=== PATIENT | male | born 1960 | race Caucasian/White ===

== ENCOUNTER → 2019-12-18 13:00 | Outpatient (BNVA) | payer BC, SELFPAY | PROVIDERS: Family Provider Nurse Practitioner Family; PCP Nurse Practitioner Family; Visit Provider Nurse Practitioner Family | DX: J18.9 Pneumonia, unspecified organism (principal) | CPT/HCPCS: 71046 ==

== ENCOUNTER 2022-09-25 10:11 | Emergency (ER) | payer OTHER, BC, MEDICAID, SELFPAY ==
[2022-09-25 10:15] VITALS: BP 172/91; PULSE 122; RESP 22; TEMP 37.3; O2SAT 92; BMI 31.5
--- NOTE | 2022-09-25 10:35 | XRR_ITS ---
PROCEDURE INFORMATION: Exam: XR Chest Exam date and time: 09/25/2022 11:48 AM Age: 62 years old Clinical indication: Cough and dyspnea; Additional info: Dyspnea/cough TECHNIQUE: Imaging protocol: Radiologic exam of the chest. Views: 1 view. COMPARISON: CR XR chest 2V* [id number] 12/18/2019 1:10 PM FINDINGS: Lungs: No focal airspace disease. Pleural spaces: Unremarkable. No pleural effusion. No pneumothorax. Heart/Mediastinum: Cardiomediastinal silhouette is within normal limits. Bones/joints: Unremarkable. XR/XR chest 1V portable [id number] IMPRESSION: No acute cardiopulmonary abnormality.
--- NOTE | 2022-09-25 10:46 | ECG_ITS ---
[facility] Test Date: 2022-09-25 Pat Name: Rocco Alcantar Department: Room: Gender: Male Non Clinical Advisor: : [id number] Requested By: Nick Monk Order Number: [id number] Reading MD: Reese Romero M.D. Measurements Intervals Lavinia Rate: 106 P: 233 UT: 123 QRS: 240 QRSD: 84 T: 239 QT: 307 QTc: 408 Interpretive Statements ECTOPIC ATRIAL TACHYCARDIA WITH OCCASIONAL SUPRAVENTRICULAR PREMATURE COMPLEXES POSSIBLE RIGHT VENTRICULAR HYPERTROPHY [SOME/ALL OF: PROMINENT R IN V1, LATE TRANSITION, RAD, TRACY, SSS] INFERIOR MYOCARDIAL INFARCTION , OF INDETERMINATE AGE [40+ ms Q WAVE AND/OR ST/T ABNORMALITY IN II/aVF] No previous ECG available for comparison Possible lead reversal in the limb leads Defective EKG, need to repeat Electronically Signed On 09-25-2022 22:16:59 SPECIAL EDUCATION SUPERINTENDENT by Reese Romero M.D. [id number]
--- NOTE | 2022-09-25 10:52 | W.ED.SOB ---
HPI - SOB/Dyspnea General: Chief Complaint: Shortness of Breath/Dyspnea Stated Complaint: SOB and fever Time Seen by Provider: 09/25/22 10:25 Source: patient Mode of arrival: ambulatory History of Present Illness: HPI Narrative: 62-year-old male presents emergency room complaining of shortness of breath. Patient has known history of COPD is chronically on 2 L by nasal cannula he recently increased his oxygen by 1 L per minute said a mildly productive cough he has been using his rescue inhaler more often with moderate relief of symptoms. He denies vomiting no diarrhea. Moderately productive cough. He does have a little bit of a low-grade fever. MD elicited complaint: shortness of breath and cough Pertinent past history: COPD Timing: constant and progressively worsening Severity: moderate Exacerbating factors: exertion, coughing and stress Relieving factors: oxygen Known history of: COPD Associated symptoms: Deny abdominal pain, chest congestion, chest pain, cough, diaphoresis, dizziness, extremity pain, fever(s), hemoptysis, lightheadedness, myalgias, nausea, orthopnea, palpitations, paresthesias, polydipsia, polyuria, rash, sense of impending doom, syncope or vomiting Review of Systems Const: Denies: fever(s), chills or diaphoresis ENMT: Denies: throat pain, ear or mastoid pain, nasal discharge or nasal congestion Card: Denies: chest pain, palpitations, lightheadedness, syncope or orthopnea Resp: Reports: dyspnea, productive cough and wheezing; Denies: non-productive cough, hemoptysis or chest congestion GI: Denies: abdominal pain, nausea or vomiting : Denies: flank pain, dysuria, urinary frequency or urinary urgency Musc: Denies: extremity pain Skin/Breast: Denies: rash or pruritus Neuro: Denies: dizziness Endo: Denies: polyuria or polydipsia PFSH ED PFSH: Medical History Acute bacterial sinusitis Anxiety Patient has history of anxiety and panic attacks. He was given Alprazolam dosing to be taken at bedtime and to repeat in 3-4 hours if needed. He reports he is doing well. Arthritis of right elbow COPD, moderate Environmental and seasonal allergies Lower respiratory infection Social History (Reviewed 09/30/22 @ 14:10 by TANYA Owusu Smoking and tobacco status: never smoked Alcohol intake: never Physical Exam Const: COMMON NORMALS: no acute distress GENERAL APPEARANCE: cooperative and comfortable ORIENTATION/CONSCIOUSNESS: Yes awake, Yes oriented to person, Yes oriented to place and Yes oriented to time HENMT: COMMON NORMALS: normocephalic, atraumatic and hearing grossly normal bilaterally HEAD & SCALP: normocephalic and atraumatic Resp: COMMON NORMALS: normal respiratory effort, No retractions and No use of accessory muscles AUSCULTATION: rhonchi and wheezes Cardio: COMMON NORMALS: regular rate, regular rhythm and No murmurs present (Cardio) RATE: regular rate RHYTHM: regular rhythm GI: COMMON NORMALS: Soft to palpation and No hepatosplenomegaly present AUSCULTATION: Yes normoactive bowel sounds PALPATION: Yes Soft to palpation, No Tenderness to palpation present (GI), No Guarding due to palpation present (GI) and Yes No hepatosplenomegaly present Extremity: COMMON NORMALS: normal to inspection, capillary refill normal, no clubbing, cyanosis or edema, no calf tenderness and no pedal edema Neuro: SENSORIUM/ORIENTATION: Yes oriented to person, Yes oriented to place and Yes oriented to time Skin: COMMON NORMALS: no rashes or lesions noted GENERAL SKIN EXAM: no rashes or lesions noted Course Vital Signs: Vital signs: Vital Signs Temperature 99.2 F 09/25/22 10:15 Pulse Rate 78 09/25/22 13:53 Respiratory Rate 16 09/25/22 13:53 Blood Pressure 141/72 09/25/22 13:53 Pulse Oximetry 90 09/25/22 13:53 Oxygen Delivery Me thod 09/25/22 11:23 Oxygen Flow Rate 3 09/25/22 11:23 MDM - SOB/Dyspnea Medical Decision Making Labs and imaging reviewed discharge home with acute exacerbation COPD steroids and aggressive use of beta agonist to improve pulmonary toilet follow-up with primary care if not improving Medical Records I reviewed the patient's medical records. Lab Data I reviewed the patient's lab results. 09/25/22 11:00 09/25/22 11:00 Labs/Radiology: Radiology Impressions Chest X-Ray 09/25/22 10:35 IMPRESSION: No acute cardiopulmonary abnormality. Laboratory Results WBC 5.8 10^3/uL (4.0-10.0) 09/25/22 11:00 RBC 4.53 10^6/uL (4.1-5.3) 09/25/22 11:00 Hgb 14.4 g/dL (11.7-16.6) 09/25/22 11:00 Hct 45.1 % (42.0-52.0) 09/25/22 11:00 MCV 99.6 fl (80-94) H 09/25/22 11:00 MCH 31.8 pg (28.0-34.0) 09/25/22 11:00 MCHC 31.9 g/dL (30.0-36.0) 09/25/22 11:00 RDW 12.9 % (12.1-15.1) 09/25/22 11:00 Plt Count 118 10^3/cmm (130-400) L 09/25/22 11:00 MPV 8.9 fL (7.4-10.4) 09/25/22 11:00 Neut % (Auto) 69.3 % 09/25/22 11:00 Lymph % (Auto) 13.1 % 09/25/22 11:00 Park % (Auto) 15.5 % 09/25/22 11:00 Eos % (Auto) 0.7 % 09/25/22 11:00 Baso % (Auto) 0.2 % 09/25/22 11:00 Neut # (Auto) 4.02 10^3/uL (1.8-7.7) 09/25/22 11:00 Lymph # (Auto) 0.8 10^3/uL (0.8-4.8) 09/25/22 11:00 Park # (Auto) 0.9 10^3/uL (0.2-0.9) 09/25/22 11:00 Eos # (Auto) 0.0 10^3/uL (0.0-0.8) 09/25/22 11:00 Baso # (Auto) 0.0 10^3/uL (0.0-0.1) 09/25/22 11:00 Nucleated RBC % (auto) 0 % 09/25/22 11:00 Nucleated RBCs # 0.0 /100WBC 09/25/22 11:00 Specimen Type Arterial 09/25/22 11:35 Sample Site Radial, right 09/25/22 11:35 ABG pH 7.46 (7.35-7.45) H 09/25/22 11:35 ABG pCO2 38.7 mmHg (35-45) 09/25/22 11:35 ABG pO2 71.4 mmHg (80.0-100.0) L 09/25/22 11:35 ABG HCO3 27.5 mmol/L (22-26) H 09/25/22 11:35 ABG O2 Saturation 96.1 09/25/22 11:35 ABG Base Excess 3.5 mmol/L (-2.0-2.0) H 09/25/22 11:35 Geo Test Pos 09/25/22 11:35 A-a O2 Gradient 14.5 mmHg (5-10) H 09/25/22 11:35 Hematocrit 43.4 % (42-52) 09/25/22 11:35 Hgb O2 Saturation 96.9 % (95-100) 09/25/22 11:35 Carboxyhemoglobin < 1.0 %THgb (0.4-20.1) 09/25/22 11:35 Methemoglobin < 0.0 % (0.4-1.5) L 09/25/22 11:35 Total Hemoglobin 14.1 g/dL (14-18) 09/25/22 11:35 Sodium 137.0 mmol/L (131-143) 09/25/22 11:35 Potassium 3.7 mmol/L (3.5-5.0) 09/25/22 11:35 Glucose 101.0 mg/dL (70-115) 09/25/22 11:35 Ionized Calcium 1.2 mmol/L (1.1-1.4) 09/25/22 11:35 O2 Delivery Device Nc 09/25/22 11:35 O2 Liters/Min 3.0 % 09/25/22 11:35 FiO2 32.0 % 09/25/22 11:35 Certified Marine Mechanic ID glc 09/25/22 11:35 Sodium 137 mmol/L (136-145) 09/25/22 11:00 Potassium 4.1 mmol/L (3.5-5.1) 09/25/22 11:00 Chloride 97 mmol/L (98-107) L 09/25/22 11:00 Carbon Dioxide 29 mmol/L (22-29) 09/25/22 11:00 Anion Gap 15.1 (5-19) 09/25/22 11:00 BUN 14 mg/dL (8-23) 09/25/22 11:00 Creatinine 1.0 mg/dL (0.7-1.2) 09/25/22 11:00 GFR Calculation 76.2 mL/min (90-130) L 09/25/22 11:00 Glucose 104 mg/dL (65-115) 09/25/22 11:00 Calculated Osmolality 285 mOsm/kg (285-295) 09/25/22 11:00 Calcium 9.2 mg/dL (8.5-10.5) 09/25/22 11:00 Total Bilirubin 0.3 mg/dL (0.15-1.2) 09/25/22 11:00 AST 49 U/L (0-40) H 09/25/22 11:00 ALT 78 U/L (0-41) H 09/25/22 11:00 Alkaline Phosphatase 92 U/L (40-130) 09/25/22 11:00 Total Protein 7.1 g/dL (6.6-8.7) 09/25/22 11:00 Albumin 4.2 g/dL (3.5-5.2) 09/25/22 11:00 Globulin 2.9 g/dL (1.3-4.6) 09/25/22 11:00 Discharge Plan Discharge Patient Disposition: Home Clinical Impression: Acute exacerbation of chronic obstructive airways disease Condition: Stable Prescriptions: New prednisone 20 mg tablet 20 mg PO TID Qty: 15 0RF Rx Instructions: 1 p.o. 3 times daily x3 days, 1 p.o. twice daily x2 days, 1 p.o. daily x2 days ipratropium-albuterol 0.5 mg-3 mg(2.5 mg base)/3 mL solution for nebulization 3 ml inhalation Q4H PRN (Reason: shortness of breath or wheezing) Qty: 180 0RF Rx Instructions: until breathing returns to target peak flow/parameters No Action fluticasone propionate [Flonase Allergy Relief] 50 mcg/actuation spray,suspension 1 spray INTRANASAL DAILY budesonide-formoterol [Symbicort] 160-4.5 mcg/actuation HFA aerosol inhaler See Rx Instructions .ROUTE .COMPLEX Qty: 10.2 6RF Dose Instruction: INHALE TWO INHALATIONS BY MOUTH TWICE DAILY Rx Instructions: INHALE TWO INHALATIONS BY MOUTH TWICE DAILY alprazolam 0.5 mg tablet 0.5 mg PO .bedtime 30 Days Qty: 60 2RF Rx Instructions: May repeat times 1 - in 3-4 hours if needed albuterol sulfate 2.5 mg /3 mL (0.083 %) solution for nebulization See Rx Instructions .ROUTE .COMPLEX Qty: 540 0RF Dose Instruction: USE 1 VIAL VIA NEBULIZER EVERY 4 HOURS NEEDED FOR SHORTNESS OF BREATH OR WHEEZING Rx Instructions: USE 1 VIAL VIA NEBULIZER EVERY 4 HOURS NEEDED FOR SHORTNESS OF BREATH OR WHEEZING albuterol sulfate 90 mcg/actuation HFA aerosol inhaler See Rx Instructions .ROUTE .COMPLEX Qty: 8.5 0RF Dose Instruction: INHALE ONE PUFF BY MOUTH EVERY 4 TO 6 HOURS Rx Instructions: INHALE ONE PUFF BY MOUTH EVERY 4 TO 6 HOURS Prilosec 20 mg Capsule,Delayed Release(Dr/Ec) 20 mg PO DAILY Vitamin D3 125 mcg (5,000 unit) Tablet 125 mcg PO DAILY Discharge Orders: Discharge ED (Routine); Ordered 09/25/22 Ordered By: Nick David Discharge Diet: Usual diet Discharge Activity: Increase activity as tolerated Patient Instructions: Opioid Safety, Pain Management Activity Restrictions/Additional Instructions: Recheck with your primary care doctor within the next week. Sooner if you have worsening problems. 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
[2022-09-25 11:11] LABS: Basophils % 0.2 %; Eosinophils % 0.7 %; Hematocrit 45.1 % (42.0-52.0); Hemoglobin 14.4 g/dL (11.7-16.6); Lymphocytes # 0.8 10^3/uL (0.8-4.8); Lymphocytes % 13.1 %; Mean Corpuscular HGB Conc 31.9 g/dL (30.0-36.0); Mean Corpuscular Hemoglobin 31.8 pg (28.0-34.0); Mean Corpuscular Volume 99.6 fl (80-94); Mean Platelet Volume 8.9 fL (7.4-10.4); Monocytes # 0.9 10^3/uL (0.2-0.9); Monocytes % 15.5 %; Neutrophils # 4.02 10^3/uL (1.8-7.7); Neutrophils % 69.3 %; Nucleated Red Blood Cells % 0 %; Platelet Count 118 10^3/cmm (130-400); Red Blood Count 4.53 10^6/uL (4.1-5.3); Red Cell Distribution Width 12.9 % (12.1-15.1); White Blood Count 5.8 10^3/uL (4.0-10.0)
[2022-09-25 11:23] VITALS: PULSE 102; RESP 24; O2SAT 94
[2022-09-25] MEDS: ipratropium-albuterol 3 mL Neb INHALATION (11:23)
[2022-09-25 11:29] LABS: Alanine Aminotransferase 78 U/L (0-41); Albumin Level 4.2 g/dL (3.5-5.2); Alkaline Phosphatase 92 U/L (40-130); Anion Gap 15.1 (5-19); Aspartate Amino Transferase 49 U/L (0-40); Blood Urea Nitrogen 14 mg/dL (8-23); Calcium 9.2 mg/dL (8.5-10.5); Carbon Dioxide 29 mmol/L (22-29); Chloride 97 mmol/L (98-107); Globulin 2.9 g/dL (1.3-4.6); Glomerular Filtration Rate 76.2 mL/min (90-130); Glucose 104 mg/dL (65-115); Osmolality Calculated 285 mOsm/kg (285-295); Potassium 4.1 mmol/L (3.5-5.1); Sodium 137 mmol/L (136-145); Total Bilirubin 0.3 mg/dL (0.15-1.2); Total Protein 7.1 g/dL (6.6-8.7)
[2022-09-25 11:31] VITALS: PULSE 98
[2022-09-25 11:44] LABS: ABG PCO2 38.7 mmHg (35-45); ABG PH Result 7.46 (7.35-7.45); Alveolar-Arterial Oxygen Gradi 14.5 mmHg (5-10); Arterial Blood Gas Hematocrit 43.4 % (42-52); Base Excess ABG 3.5 mmol/L (-2.0-2.0); Blood Gas Allen Test Pos; Blood Gas Operator Identificat glc; Blood Gas Sample Site Radial, right; Blood Gas Sample Type Arterial; Carboxyhemoglobin < 1.0 %THgb (0.4-20.1); HCO3 ABG 27.5 mmol/L (22-26); HGB O2 Sat 96.9 % (95-100); Ionized Calcium Level - ABG 1.2 mmol/L (1.1-1.4); Methemoglobin < 0.0 % (0.4-1.5); Oxygen Device NC; Oxygen Saturation ABG 96.1; PO2 ABG 71.4 mmHg (80.0-100.0); Potassium Level - ABG 3.7 mmol/L (3.5-5.0); Total Hemoglobin 14.1 g/dL (14-18)
[2022-09-25 13:53] VITALS: BP 141/72; PULSE 78; RESP 16; O2SAT 90
== END 2022-09-25 14:08 | disposition home or self-care (01) ==
PROVIDERS: Emergency Provider Family Medicine
DX: J44.1 Chronic obstructive pulmonary disease with (acute) exacerbation (principal)
CPT/HCPCS: 36600; 71045; 80051; 80053; 82330; 82805; 85025; 93005; 94640; 96374; 99285; J2930

== ENCOUNTER → 2022-10-19 08:24 | Outpatient (BNVA) | payer OTHER, BC, MEDICAID, SELFPAY | PROVIDERS: PCP Nurse Practitioner; Visit Provider Nurse Practitioner | DX: J22 Unspecified acute lower respiratory infection (principal) | CPT/HCPCS: 71046 ==

== ENCOUNTER → 2023-10-20 11:48 | Outpatient (BNVA) | payer BC, MEDICAID, SELFPAY | PROVIDERS: PCP Nurse Practitioner; Visit Provider Nurse Practitioner Family | DX: J44.9 Chronic obstructive pulmonary disease, unspecified (principal); F41.9 Anxiety disorder, unspecified; Z79.899 Other long term (current) drug therapy; Z01.89 Encounter for other specified special examinations; Z13.6 Encounter for screening for cardiovascular disorders; Z12.5 Encounter for screening for malignant neoplasm of prostate; H66.90 Otitis media, unspecified, unspecified ear | CPT/HCPCS: 80053; 80061; 81003; 82306; 83036; 84443; 85025; G0103 ==

== ENCOUNTER → 2025-03-05 13:37 | Outpatient (BNVA) | payer MEDICARE, MEDICAID, SELFPAY | PROVIDERS: PCP Nurse Practitioner; Visit Provider Nurse Practitioner Family | DX: J30.89 Other allergic rhinitis (principal); J44.9 Chronic obstructive pulmonary disease, unspecified; K21.9 Gastro-esophageal reflux disease without esophagitis; Z79.899 Other long term (current) drug therapy; Z13.6 Encounter for screening for cardiovascular disorders; Z12.5 Encounter for screening for malignant neoplasm of prostate | CPT/HCPCS: 80053; 80061; 81003; 82306; 83036; 84443; 85025; G0103 ==